=== PATIENT | male | born 1965 | race Caucasian/White ===

== ENCOUNTER 2020-09-19 06:38 | Emergency (ER) | payer BC ==
[~2020-09-19] VITALS: Ht 172.7 cm; Wt 116.2 kg
[2020-09-19] MEDS ORDERED: HYDROCODON-ACE1 EA11 PO (08:38)
== END 2020-09-19 09:05 | disposition home or self-care (01) ==
LOC: ED 06:38
DX: S42.021A Displaced fracture of shaft of right clavicle, initial encounter for closed fracture (principal); V27.4XXA Motorcycle driver injured in collision with fixed or stationary object in traffic accident, initial encounter
CPT/HCPCS: 73030; 99284-25